=== PATIENT | female | born 1955 | race Caucasian/White ===

== ENCOUNTER → 2017-12-04 | Outpatient (CLI) | payer OTHER | END | disposition home or self-care (01) | LOC: KCIC MRI 09:14 | DX: M17.0 Bilateral primary osteoarthritis of knee (principal); M51.16 Intervertebral disc disorders with radiculopathy, lumbar region; G89.29 Other chronic pain | CPT/HCPCS: 72148; 73565 ==

== ENCOUNTER 2018-11-05 08:06 | Day surgery (SDC) | payer OTHER ==
[~2018-11-05] VITALS: Ht 160 cm; Wt 92.8 kg
[~2018-11-05 08:06] MED LIST: ASPI-630 PO; BUTA1CAP27 PO; CALC200T3 PO; HYDROmorphone 2 MG/ML VIAL IV PRN; IV RINGERS,LACTATED 1000ML 1,000 ML IV SCH; LIDOCAINE 1% PF 2 ML VIAL. ID PRN; MAGN400C PO; MOME17SP NS; MORPHINE SULFATE 4 MG/ML VIAL. IV PRN; MULT1TAB52 PO; ONDANSETRON PF 4 MG/2 ML VIAL. IV PRN; PIOG1TAB24 PO; PROCHLORPERAZINE 10 MG/2 ML VIAL. IV PRN; SEMA0.25 SQ; SIMV20TA3 PO; fentaNYL PF VIAL 100 MCG/2 ML VIAL IV PRN
--- NOTE | 2018-11-05 11:00 | DISCH ---
DISCHARGE INSTRUCTIONS Condition on Discharge Condition on Discharge: Stable Activity After Discharge Activity Instructions for Disc: Other, see below (avoid hard grasp with operative hand) Weight Bearing Status after Di: As tolerated Diet after Discharge Diet after Discharge: Regular Wound Incision Care Wound/Incision Care: Change dressing (May change dressing in 3 days may then shower no soaking until sutures removed) Contacting the DRLoraine after DC Call your doctor for: Concerns you may have Follow-Up Follow up with: Santiago 10 days SCHUYLER ORELLANA MD Nov 05, 2018 11:00
[2018-11-05] MEDS ORDERED: DEXAMETHASONE SOD PHOS 20 MG/5 ML VIAL. ONE (11:02)
[2018-11-05] MEDS ORDERED: fentaNYL PF VIAL 100 MCG/2 ML VIAL ONE (11:02)
[2018-11-05] MEDS ORDERED: PROPOFOL 20 ML IV ONE (11:02)
[2018-11-05] MEDS ORDERED: ONDANSETRON PF 4 MG/2 ML VIAL. ONE (11:02)
[2018-11-05] MEDS ORDERED: LIDOCAINE 2% PF Vial for OR 5 ML VIAL. ONE (11:02)
[2018-11-05] MEDS ORDERED: LIDOCAINE 1% 20 ML VIAL. ONE (11:09)
[2018-11-05] MEDS ORDERED: LIDOCAINE 1% 20 ML VIAL. INJ ONE (11:38)
[2018-11-05] MEDS ORDERED: SEVOFLURANE 16 TO 30 MINUTES. IH ONE (11:43)
[2018-11-05 12:38] VITALS: BP 146/73
--- NOTE | 2018-11-05 20:50 | PDOC4 ---
Operative Note Operative Note Date of surgery 11/05/2018 Preoperative diagnosis: Left thumb trigger finger Postoperative diagnosis: Same Operative procedure: Left thumb trigger finger release Surgeon: Santiago Anesthesia: Gen. Estimated blood loss: 1 mL Complications: None Operative indications: Please see my clinic notes for detailed operative indications patient has had painful trigger thumb for several months unresponsive to nonoperative treatment I went over risks benefits postoperative course of trigger finger release. After informed consent was obtained she agreed to proceed with surgical evaluation and treatment Operative text: Patient was identified procedure verified patient placed in supine position on the operating table. After adequate amounts of general anesthesia were administered the left upper extremity was prepped and draped in standard sterile fashion. After timeout was performed patient procedure identified and verified the left upper extremity was exsanguinated by Esmarch bandage tourniquet inflated to 250mercury an incision was made at the base of the thumb crease dissection carried out and distal neurovascular structures were protected flexor tendon sheath was incised and the A1 katelin divided flexor tendon was noted to be intact and triggering eliminated. Closure was accomplished with nylon suture and a vertical mattress fashion. Sterile dressings were applied patient was returned recovery room in stable condition having tolerated the procedure well SCHUYLER ORELLANA MD Nov 05, 2018 20:50
== END 2018-11-05 12:50 | disposition home or self-care (01) ==
LOC: SURG 08:06
PROVIDERS: ATTEND Orthopaedic Surgery
DX: M65.312 Trigger thumb, left thumb (principal); E11.9 Type 2 diabetes mellitus without complications; Z98.890 Other specified postprocedural states; Z98.51 Tubal ligation status; Z72.89 Other problems related to lifestyle; Z79.899 Other long term (current) drug therapy; Z79.84 Long term (current) use of oral hypoglycemic drugs
CPT/HCPCS: 26055; 82962; A7015; J0696; J1100; J2001; J2405; J2704; J3010

== ENCOUNTER → 2019-08-03 | Outpatient (CLI) | payer OTHER ==
[~2019-08-03] MED LIST changes: -HYDROmorphone 2 MG/ML VIAL IV PRN; -IV RINGERS,LACTATED 1000ML 1,000 ML IV SCH; -LIDOCAINE 1% PF 2 ML VIAL. ID PRN; -MORPHINE SULFATE 4 MG/ML VIAL. IV PRN; -ONDANSETRON PF 4 MG/2 ML VIAL. IV PRN; -PROCHLORPERAZINE 10 MG/2 ML VIAL. IV PRN; +SIMV20TA18 PO; -SIMV20TA3 PO; -fentaNYL PF VIAL 100 MCG/2 ML VIAL IV PRN
--- NOTE | 2019-08-03 11:02 | KCIC ---
Bilateral digital screening mammograms: Reason for examination: Routine screening. Comparison is made to previous studies dated 12/12/2015 and 10/21/2011. Interpretation was made with the benefit of CAD. The skin and nipples show no abnormalities. No abnormal axillary lymph nodes are seen. The breast parenchyma is heterogeneously dense. (Breast density: Category C.) There appears to be a small 1 cm nodule developing at the 3:00 B position of the right breast. Further evaluation with ultrasound is recommended. There also appears to be a small nodular density at the 2:00 C position of the left breast. This may represent some superimposition of tissues but recommend further evaluation with coned compression views and ultrasound. There are no other new dominant masses, suspicious calcifications or architectural distortion. Impression: 1 cm nodule at the 3:00 B position of the right breast. Recommend further evaluation with ultrasound. 1 cm nodular density at approximately the 2:00 C position of the left breast. Recommend further evaluation with coned compression views and ultrasound. Your patient's mammogram demonstrates that she has dense breast tissue (breast density category C or D), which could hide abnormalities, and if she has other risk factors for breast cancer that have been identified, she might benefit from supplemental screening tests that may be suggested by you as her ordering physician. Dense breast tissue, in and of itself, is a relatively common condition. Therefore, this information is not provided to cause undue concern, but rather to raise your awareness and to promote discussion with your patient regarding the presence of other risk factors, in addition to dense breast tissue. Your patient's mammography results will be sent to her. BI-RAD Category 0: Incomplete. Needs additional imaging evaluation. "Our facility is accredited by the [employer] Mammography [employer]." This patient's information has been entered into a reminder system for the patient to be notified with the results of her examination and a target date for the next mammogram. Electronically signed by: Sailaja Monsalve MD (08/03/2019 10:59 AM) [id number]
== END | disposition home or self-care (01) ==
LOC: KCIC MAMMO 07:51
PROVIDERS: ATTEND Specialist
DX: Z12.31 Encounter for screening mammogram for malignant neoplasm of breast (principal); N63.14 Unspecified lump in the right breast, lower inner quadrant
CPT/HCPCS: 77067

== ENCOUNTER → 2019-08-18 | Outpatient (CLI) | payer OTHER ==
--- NOTE | 2019-08-18 11:05 | KCIC ---
Left breast diagnostic digital mammograms: Reason for examination: Nodular density on screening. Comparison is made to previous study dated 08/03/2019. Cone compression views were obtained in CC and oblique projections. With these additional views, a small nodule with architectural distortion appears to persist and there also appear to be microcalcifications at the site. Further evaluation with stereotactic biopsy is recommended. IMPRESSION: Small nodular density with architectural distortion at the 2:00 position approximately 11 cm from the nipple with associated calcifications. Recommend stereotactic biopsy. BI-RADS Category 5: Highly suspicious. Bilateral breast ultrasound: Bilateral whole breast ultrasound including evaluation of all 4 quadrants and the retroareolar and axillary regions of both breasts was performed. The right breast shows a 10 x 8.3 mm cystic lesion at the 2:00 position 7 cm from the nipple which corresponds with the area of mammographic concern. No other cystic or solid lesions are seen. No abnormal appearing lymph nodes are seen in the axilla. The left breast shows a 5.3 x 6.3 mm fibrocystic type lesion at the 2:00 position 7 cm from the nipple measuring 3.9 x 3.6 mm lesion at the 2:00 position 11 cm from the nipple. No abnormal appearing lymph nodes are seen in the left axilla. IMPRESSION: 1 cm cystic lesion at the 2:00 position of the right breast corresponds to mammographic findings. 2 small fibrocystic type lesions at the 2:00 position 7 cm and 11 cm from the nipple. Recommend 6 month follow-up. Recommend however stereotactic biopsy of calcifications and architectural distortion seen mammographically. BI-RADS Category 5: Highly suggestive of malignancy. These findings have been discussed with the patient and the patient's physician Dr. Mckeon's nurse, Eloise, was notified about these findings on 08/18/2019 at 10:55 AM. "Our facility is accredited by the [employer] Mammography Program." This patient's information has been entered into a reminder system for the patient to be notified with the results of her examination and a target date for the next mammogram. Electronically signed by: Sailaja Monsalve MD (08/18/2019 11:02 AM) [id number]
== END | disposition home or self-care (01) ==
LOC: KCIC MAMMO 08:07
PROVIDERS: ATTEND Specialist
DX: N64.89 Other specified disorders of breast (principal)
CPT/HCPCS: 76641; 77065